=== PATIENT | female | born 1985 | race Caucasian/White ===

== ENCOUNTER → 2024-06-25 10:22 | Outpatient (REF) | payer OTHER, SELFPAY | LOC: WDC 10:22 | PROVIDERS: ATTENDING PHYSICIAN Nurse Practitioner Adult Health | DX: N63.10 Unspecified lump in the right breast, unspecified quadrant (principal); N63.13 Unspecified lump in the right breast, lower outer quadrant | CPT/HCPCS: 76642; 77062; 77066 ==

== ENCOUNTER 2025-10-21 18:33 | Emergency (ER) | payer OTHER, SELFPAY ==
[2025-10-21 19:08] LABS: Hematocrit 41.9 % (37.0-47.0); Hemoglobin 14.0 g/dL (12.0-16.0); Mean Corp Hgb Conc. 33.4 g/dL (33.0-37.0); Mean Corpuscular Volume 91.1 fL (81.0-99.0); Nucleated Red Blood Cells % 0 %; Platelet Count 225 10^3/uL (130-400); Red Cell Dist. Width 13.5 % (11.5-14.5)
[2025-10-21 19:29] LABS: ALT (SGPT) 17 U/L (0-35); AST (SGOT) 27 U/L (14-36); Albumin 4.6 g/dl (3.5-5.0); Alkaline Phosphatase 55 U/L (38-126); Blood Urea Nitrogen 16 mg/dl (7-17); Calcium 9.4 mg/dl (8.4-10.2); Carbon Dioxide 27 mmol/L (22-30); Chloride 104 mmol/L (98-107); Glucose 91 mg/dl (70-99); Potassium 3.6 mmol/L (3.5-5.1); Sodium 137 mmol/L (135-145); Total Protein 7.8 g/dl (6.3-8.2); eGFR > 60.00
[2025-10-21 19:40] LABS: Troponin I 0.017 ng/ml
[2025-10-21 21:56] VITALS: BMI 23.7
[2025-10-21 22:07] VITALS: BP 118/78
[2025-10-21 23:01] VITALS: BP 114/73
--- NOTE | 2025-10-21 23:39 | ED.GENMED ---
History of Present Illness
General
Chief Complaint: Chest Pain
Source: patient
Exam Limitations: none
Time Seen by Provider: 10/21/25 23:19
Nursing documentation reviewed up to this point in time: agreed with except (Patient has history of rheumatoid arthritis, Sjogren syndrome. She does not have history of psoriatic arthritis)
History of Present Illness
History of Present Illness:
HISTORY OF PRESENT ILLNESS
The patient is a 39-year-old female with a history of rheumatoid arthritis who presented with chest pain. The patient describes the onset of chest pain as sudden and occurring when bending or turning over, characterizing it as a 'nine out of ten'
pain, described as feeling like 'standing on my chest.' Pain began yesterday around 5 PM. The pain seems to slightly worsen with deep breathing and was triggered while laughing. Improved today but continues intermittently more so with movement,
with rolling over in bed, with bending over, worse with laughing. Additionally, the patient reports episodes of blurred vision and significant fatigue, both of which she attributes to her current medication regimen, which includes Simponi Aria, an
immunomodulator infusion she receives every eight weeks. Last infusion 10/14/25
The patient also reports having frequent migraines, characterized by right-sided pain, and associated symptoms such as nausea, fever, and chills. These migraines occur approximately every two to three weeks and last for three to four days. She notes
increased frequency of migraines over the last year and expresses concern about their severity and impact on her daily functioning. Last episode 1 month ago.
The patient conveys episodes of heavy menstrual bleeding occurring sometimes with only a two-week break, raising concerns of hormonal changes. Her last menstrual period began the day prior to her visit.
She complains of moderate generalized fatigue, generalized aches, intermittent brief dizziness, all ongoing for at least the past year.
She has discussed these symptoms with her flight/transport nurse and states her flight/transport nurse does not believe these ongoing symptoms are related to her rheumatoid arthritis nor her medications.
She has discussed her symptoms with her PCP, last visit 7 to 8 months ago. She has a prescription for MRI of her brain, has not scheduled this as yet. She was hoping that we would be able to expedite scheduling her outpatient MRI.
She has a longstanding history of migraine headaches that began in her childhood. She had been on medications for migraines during her childhood but currently no prescription abortive medications nor suppressive medications.
Currently denies headache. She has not had a cough. No recent fever.
Menstrual period began yesterday. She adamantly denies risk of . She is not maintained on control pills. No recent travel. No leg pain or swelling.
Chronic Medical Conditions Significantly Affecting Care:
The patients care is affected by rheumatoid arthritis for which she receives Simponi Aria infusions. She also experiences recurrent migraines.
Past History
Past History
ED Past Medical History: Other (Rheumatoid arthritis, Sjogren syndrome)
ED Past Surgical History: None
Social History
Tobacco: Non-smoker
Alcohol: Occasional
Drug: None
Personal: Single
Living: with family
Employment: Employed
Family History
Family History: Other (Noncontributory)
Phy Exam
Physical Exam
Physical Exam:
GENERAL: 39-year-old woman appears her stated age, awake and alert, pleasant, appears in no acute distress. Afebrile. Vital signs within normal limits. Parents are accompanying.
EYE: pupils equal and reactive. anicteric
NECK: Supple, nontender, no meningismus, no significant adenopathy.
ENT: oral mucosa is moist. No rhinorrhea.
CARDIAC: Regular rate and rhythm. no murmur. Moderate parasternal chest pain to palpation more so right parasternal than left. Palpation seems to exactly reproduce patient's chest pain complaint. No crepitus nor palpable bony abnormality.
LUNGS: Clear breath sounds bilaterally, no acute respiratory distress, no wheezes/rales/rhonchi
ABDOMEN: Soft, nondistended, without focal tenderness, no r/g, no cvat. normoactive BS.
NEUROLOGICAL: Alert and oriented x3, no focal neuro deficits. Gait is steady.
SKIN: Warm and dry, normal color, skin intact. No rash.
MUSCULOSKELETAL: No C/C/E. peripheral pulses are full and equal b/l. No palpable tenderness.
PSYCH: Normal and appropriate interaction.
Scores
Heart Score for Chest Pain Patients
STEMI patient?: No
History: Slightly or Non-Suspicious
ECG: Normal
Age: </= 45 years
Risk Factors: No Risk Factors
Troponin: </= Normal Limit
Heart Score for Chest Pain Patients: 0
Heart Score Risk: 2.5% MACE over next 6 weeks
Course
Orders/Labs/Results
Orders:
Orders
10/21/25 18:34
Electrocardiogram (*1) Urgent
Reason for Study: Chest Pain
EKG- Treatment ONCE
10/21/25 18:46
Electrocardiogram (*1) Urgent
Reason for Study: Chest Pain
Cardiac Monitoring- Treatment ONCE
EKG- Treatment ONCE
IV Insert/Care/Rem.- Treatment PRN
O2 Therapy [RESP] Urgent
Titrate/Wean O2 to maintain O2 sat greater than (%): 90
Special Instructions: Maintain sats >/=90%
Pulse Ox/spot Check [RESP] Urgent
Quantity: 1
Special Instructions: ON ROOM AIR
10/21/25 18:50
Complete Blood Count/With Diff Urgent
Comprehensive Metabolic Panel Urgent
Troponin I Urgent
10/21/25 23:38
CR Chest - 2 Views Urgent
Comment:
Reason For Exam: substeranl CP x 2 days
Abnormal Lab Results
10/21/25
18:50
MPV 12.1 H fL
(7.4-10.4)
10/21/25 18:50
10/21/25 18:50
Vital Signs
Initial and Last Documented VS:
Initial Vital Signs
Resp
18
10/21/25 18:37
Last Documented Vital Signs
Pulse Resp BP Pulse Ox
62 21 114/73 99
10/21/25 23:30 10/21/25 23:30 10/21/25 23:01 10/21/25 23:41
MDM/Problems Addressed
Differential Diagnosis Includes:
DIFFERENTIAL DIAGNOSIS
The Differential Diagnosis includes, in no particular order and is not limited to:
1. Costochondritis
2. Myocardial ischemia
3. Pulmonary embolism
4. Pericarditis
5. Gastritis or peptic ulcer disease
6. Migraine headaches, potentially exacerbated by medication or hormonal changes
7. Viral infection
8. Hypertension-related headache
9. Medication side effects (due to immunomodulator therapy)
10. Hormonal imbalance
MDM/Problems Addressed:
Acute chest pain that began over 24 hours ago. Improving today.
Complains of migraine headaches, chronic in nature since childhood, worsening over the past year.
She also notes somewhat chronic issues with chronic fatigue, intermittent blurry vision, dizziness all ongoing for several months perhaps over the past year.
Overall well in appearance. Afebrile. Vital signs within normal limits.
EKG shows sinus bradycardia otherwise unremarkable.
Labs are all unremarkable, normal CBC. Unremarkable chemistries. Normal troponin.
Exam notable for reproducible parasternal chest pain and I suspect an element of costochondritis. She has had no nausea nor vomiting, pain is not worsened or improved with meals thus GERD is less likely.
No risk factors for thromboembolism and she is without tachycardia, unremarkable EKG.
We discussed her ongoing migraine headaches. Currently headache free. No focal neurodeficits. We discussed obtaining a CAT scan of her head which she declines and instead plans to schedule MRI of her brain. At this point no indication for urgent
MRI. She is currently headache free, no focal neurodeficits. Afebrile.
Recommend we check a chest x-ray, assess for heart size, lung mckeon. She is agreeable if able to be completed in a timely fashion.
Chronic conditions affecting care: Other (Rheumatoid arthritis, Sjogren syndrome, migraine headaches)
*Radiology
Radiology exam reviewed: preliminary read by ED provider (Chest x-ray is unremarkable, clear lung mckeon. Normal heart size. Normal mediastinum.)
*Pulse Oximetry
SaO2: 99
Oxygen Mode of Delivery: Room air
Patient hypoxic: no
*EKG
Interpreted by ED Provider?: Yes
Interpretation: normal
Comparison EKG: no comparison EKG present
Rate: bradycardiac
Rhythm: sinus
[place]: normal axis
Interval: normal interval
QRS Pattern: normal QRS
Ischemia: no ischemia
*Advanced Practice Rn Interpretation
Rate: normal
Interpretation: normal
Heart Rate: 60
Rhythm: sinus
*Critical Care Note
Total Time (30-74mins, 75-104mins- exclusive of procedures): Not Applicable
Update Note
Update Note:
00:20
Chest x-ray is unremarkable.
I suspect chest pain is costochondritis in nature.
Recommend supportive measures, NSAIDs versus Tylenol. Local heat. Avoid lifting.
Prompt follow-up with PCP for recheck as well as recommend follow-up with PCP regarding several ongoing/chronic issues including migraine headaches, fatigue, dizziness.
ED Attending Note
-
Portions of this chart may have been created with voice recognition software.� Occasional wrong word or��sound alike� substitutions may have occurred due to the inherent limitations of voice recognition software.
Discharge Plan
Departure
Patient Disposition: Home (Routine Discharge)
Date of Disposition: 10/22/25
Time of Disposition: 00:21
Patient with high blood pressure during this ER visit?: No
Condition: Good
Discharge Problem:
Acute costochondritis
Instructions: Costochondritis (DC), Chest Pain PCP Follow Up
Prescriptions:
No Action
Control Pill
1 tab PO DAILY
Referrals:
Whit Hernandez PA-C [Family Provider, Family Practice] - Call in 1-3 days for appt
Interventions
Interventions:
*Risk Screen - Suicide Last Done: 10/21/25 18:37
*General Assessment Last Done: 10/21/25 22:07
*Neglect/Abuse Screening Last Done: 10/21/25 22:07
*ED COVID-19 Vaccine History Last Done: 10/21/25 22:07
*ED Influenza Vaccine History Last Done: 10/21/25 22:07
[facility] Fall Risk Assessment Tool Last Done: 10/21/25 22:10
ED- Cardiac Assessment Last Done: 10/21/25 22:11
Discharge Date and Time
Print Language: MACANESE
== END 2025-10-22 00:42 | disposition home or self-care (01) ==
LOC: EMR 18:33
PROVIDERS: Emergency Medicine; EMERGENCY PHYSICIAN Emergency Medicine; FAMILY PHYSICIAN Physician Assistant Medical
DX: M94.0 Chondrocostal junction syndrome [Tietze] (principal); M06.9 Rheumatoid arthritis, unspecified; G43.909 Migraine, unspecified, not intractable, without status migrainosus; M35.00 Sjogren syndrome, unspecified
CPT/HCPCS: 99284; 71046; 80053; 84484; 85025; 93005